=== PATIENT | female | born 1975 | race American Indian/Alaskan Native ===

== ENCOUNTER 2022-12-22 16:13 | Emergency (ER) | payer MEDICAID ==
[~2022-12-22] VITALS: Ht 165.1 cm; Wt 48.1 kg
[2022-12-22 16:22] VITALS: BP 137/95
[2022-12-22] MEDS ORDERED: CEPH500 PO (17:09)
== END 2022-12-22 17:22 | disposition home or self-care (01) ==
LOC: ER 16:13
DX: L03.113 Cellulitis of right upper limb (principal); L03.114 Cellulitis of left upper limb; L03.116 Cellulitis of left lower limb
CPT/HCPCS: 99282; A9270